=== PATIENT | female | born 1950 | race Caucasian/White ===

== ENCOUNTER 2024-03-18 18:23 | Emergency (ER) | payer MEDICARE, BC ==
[~2024-03-18] VITALS: Ht 154.9 cm; Wt 59.0 kg
[2024-03-18] MEDS ORDERED: ACYCLOVIR 200 MG CAPSULE ONE (19:11)
[2024-03-18] MEDS ORDERED: predniSONE 50 MG TABLET ONE (19:11)
[2024-03-18] MEDS: ACYCLOVIR 400 MG TABLET PO ONE (19:16)
[2024-03-18] MEDS: predniSONE 50 MG TABLET PO ONE (19:16)
[2024-03-18] MEDS ORDERED: VALA10002 PO (19:28)
[2024-03-18] MEDS ORDERED: PRED50TA PO (19:28)
[2024-03-18] MEDS ORDERED: FLUORESCEIN SODIUM 1 MG STRIP ONE (19:41)
[2024-03-18] MEDS ORDERED: TETRACAINE HCL 0.5% OPHT DROP 2 ML BOTTLE ONE (19:42)
[2024-03-18] MEDS: FLUORESCEIN SODIUM 1 MG STRIP OP ONE (20:02)
[2024-03-18] MEDS: TETRACAINE HCL 0.5% OPHT DROP 2 ML BOTTLE OP ONE (20:02)
[2024-03-18 20:30] VITALS: BP 134/70; TEMP 98.4; O2SAT 97
== END 2024-03-18 20:25 | disposition home or self-care (01) ==
LOC: ER 18:23
DX: B02.33 Zoster keratitis (principal); I10 Essential (primary) hypertension; Z79.52 Long term (current) use of systemic steroids; Z79.624 Long term (current) use of inhibitors of nucleotide synthesis
CPT/HCPCS: 99283; J7512; A4606; A4663